=== PATIENT | female | born 1980 | race African-American/Black ===

== ENCOUNTER 2017-05-21 10:32 | Emergency (ER) | payer MEDICAID, OTHER ==
[~2017-05-21] VITALS: Ht 172.7 cm; Wt 100.0 kg
[~2017-05-21 10:32] MED LIST: AZIT500I PO; BENZ100 PO; IBUP800T23 PO; MEDR4PAK3 PO; PREN0.01 PO; ZITH250T PO
[2017-05-21 10:34] VITALS: BP 133/84; PULSE 92; RESP 18; TEMP 98.8; O2SAT 99
--- NOTE | 2017-05-21 10:53 | PD ---
HPI Chief Complaint: Back/ Neck Pain or Injury Time Seen by Provider: 10:48 Travel History International Travel<30 days: No Contact w/Intl Traveler<30days: No Traveled to known affect area: No History of Present Illness HPI 36 year old female presents to the ED for evaluation of right sided lower back pain that radiates into her buttock and leg; worsening over the last 3 days. Denies any injury. Pain is intermittently sharp. Denies saddle paresthesia, loss of bowel or bladder, and lower extremity weakness. Pt denies urinary symptoms. No fever or chills. No recent illnesses. Pt has no other symptoms to report. PFSH Past Medical History Diminished Hearing: No Immunizations Current: Yes : 2 Para: 1 Past Surgical History Section: Yes Social History Alcohol Use: No Tobacco Use: No Substance Use: No Allergies-Medications (Allergen,Severity, Reaction): Coded Allergies: No Known Allergies (Verified , 06/23/14) Reported Meds & Prescriptions Reported Meds & Active Scripts Active Robaxin (Methocarbamol) 500 Mg Tab 500 Mg PO TID PRN Ibuprofen 800 Mg Tab 800 Mg PO Q8H PRN Medrol Dosepak (Methylprednisolone) 4 Mg Kamlesh 4 Mg PO DIRECTED TAKE DIRECTED Tessalon Perles (Benzonatate) 100 Mg Cap 100 Mg PO TID PRN Zithromax Z-Kamlesh (Azithromycin) 250 Mg Tab 250 Mg PO DIRECTED 500 MG (2 TABLETS) PO ON DAY 1, THEN 250 MG (1 TABLET) PO ON DAYS 2 TO 5. Azithromycin 500 Mg Tab 500 Mg PO DAILY Ibuprofen 800 Mg Tab 800 Mg PO Q8 PRN Reported Vit ( Plus) (Prenat Multivit/Oradell/Iron/Folic Ac) Tab 1 Tab PO DAILY Review of Systems Except as stated in HPI: all other systems reviewed are Neg Physical Exam Narrative GENERAL: Well nourished female pt ambulatory with an antalgic gait, but in no acute distress SKIN: Warm and dry. HEAD: Normocephalic. EYES: No scleral icterus. No injection or drainage. NECK: Supple, trachea midline. No JVD or lymphadenopathy. CARDIOVASCULAR: Regular rate and rhythm without murmurs, gallops, or rubs. RESPIRATORY: Breath sounds equal bilaterally. No accessory muscle use. GASTROINTESTINAL: Abdomen soft, non-tender, nondistended. MUSCULOSKELETAL: No cyanosis, or edema. Tenderness to palpation over the right sacroilliac joint; no spinal tenderness. + RLE straight leg. No hypo/hyper reflexivity. BACK: Nontender without obvious deformity. No CVA tenderness. Data Data Last Documented VS Vital Signs Date Time Temp Pulse Resp B/P (MAP) Pulse Ox O2 Delivery O2 Flow Rate FiO2 05/21/17 12:29 05/21/17 10:34 98.8 92 18 99 Room Air Orders Orders Ketorolac Inj (Toradol Inj) (05/21/17 11:00) Orphenadrine Inj (Norflex Inj) (05/21/17 11:00) Splint Or Brace Apply/Monitor (05/21/17 10:52) Ed Discharge Order (05/21/17 10:53) Brace Quick Draw Corset (05/21/17 ) MDM Medical Decision Making Medical Screen Exam Complete: Yes Emergency Medical Condition: Yes Medical Record Reviewed: Yes Differential Diagnosis sciatica vs low back strain vs discogenic pain vs radiculopathy Narrative Course 36 year old female presents to the eD for evaluation of Right lower back pain radiating to her right buttock with no known injury. No focal deficits or weakness. History and physical exam are consistent with sciatica. Pt is treated for pain; provided Quick draw back brace, and counseled on care. She agrees to return immediately with any acute worsening of symptoms Diagnosis Primary Impression: Sciatica of right side Referrals: Primary Care Physician Patient Instructions: General Instructions, Sciatica (ED) Additional Instructions: Ice and/or warm moist heat may help to alleviate symptoms Avoid activity that exacerbates pain Avoid prolonged bedrest Brace for support when ambulatory. Do not wear this at all times as it may weaken her core muscles, worsening of back pain Follow-up with primary care provider Return immediately with any acute worsening symptoms Med/Other Pt SpecificInfo: Prescription(s) given Scripts Methocarbamol (Robaxin) 500 Mg Tab 500 MG PO TID Y for MUSCLE SPASM, #20 TAB 0 Refills Prov: Akua Cervantes 05/21/17 Ibuprofen (Ibuprofen) 800 Mg Tab 800 MG PO Q8H Y for Pain/Inflammation, #30 TAB 0 Refills Prov: Akua Cervantes 05/21/17 Disposition: 01 DISCHARGE HOME Condition: Stable Akua Cervantes May 21, 2017 10:53
[2017-05-21] MEDS ORDERED: ROBA500T PO (10:55)
[2017-05-21] MEDS ORDERED: IBUP800T23 PO (10:55)
[2017-05-21] MEDS ORDERED: ORPHENADRINE INJ 60 MG/2 ML AMP IM ONE (11:00)
[2017-05-21] MEDS ORDERED: KETOROLAC TROMETHAMINE 60 MG/2 ML (IM) VIAL IM ONE (11:00)
== END 2017-05-21 12:30 | disposition home or self-care (01) ==
LOC: NEPK 10:32
DX: M54.41 Lumbago with sciatica, right side (principal)
CPT/HCPCS: 96372; 99284; J1885; J2360; L0627